=== PATIENT | male | born 1985 | race Caucasian/White ===

== ENCOUNTER 2018-02-28 11:13 | Emergency (ER) | payer SELFPAY ==
--- NOTE | 2018-02-28 13:32 | RAD REPORT ---
EXAM DESCRIPTION: RAD - Foot Right 3 View - 02/28/2018 12:52 pm CLINICAL HISTORY: Pain and swelling without known precipitating event COMPARISON: None. FINDINGS: No fracture, dislocation or periosteal reaction. No air or foreign body in the soft tissues. IMPRESSION: Negative right foot examination.
--- NOTE | 2018-02-28 13:39 | ER ---
Nurse's Notes [facility] Name: Jone Griffin Age: 32 yrs Sex: Male : 1985 Arrival Date: 02/28/2018 Time: 11:15 Bed 13 Private MD: Diagnosis: Pain in right foot Presentation: 02/28 11:26 Presenting complaint: Patient states: My right foot has been swollen for the last 2 la1 days. Transition of care: patient was not received from another setting of care. Onset of symptoms was February 28, 2018. Initial Sepsis Screen: Does the patient meet any 2 criteria? No. Patient's initial sepsis screen is negative. Does the patient have a suspected source of infection? No. Patient's initial sepsis screen is negative. Care prior to arrival: None. 11:26 Method Of Arrival: Ambulatory la1 11:26 Acuity: CHARLENE 3 la1 Historical: - Allergies: 11:26 No Known Allergies; la1 - Home Meds: 11:30 thyroid medication [Active]; Vitamin C Oral [Active]; rb1 - PMHx: 11:30 Hypothyroidism; rb1 - PSHx: 11:30 None; rb1 - Immunization history:: Adult Immunizations up to date. - Social history:: Smoking status: Patient/guardian denies using tobacco. Screenin:30 Abuse screen: Denies threats or abuse. Nutritional screening: No deficits noted. rb1 Tuberculosis screening: No symptoms or risk factors identified. Fall Risk None identified. Assessment: 11:30 General: Appears in no apparent distress. comfortable, Behavior is calm, cooperative. rb1 Pain: Complains of pain in right foot Pain currently is 5 out of 10 on a pain scale. Pain began 2-3 days ago. Aggravated by increased activity. Neuro: Level of Consciousness is awake, alert, obeys commands, Oriented to person, place, time, situation. Cardiovascular: Capillary refill < 3 seconds is brisk in bilateral fingers Pulses are palpable in right dorsalis pedis artery. Respiratory: Airway is patent Respiratory effort is even, unlabored, Respiratory pattern is regular, symmetrical. GI: No signs and/or symptoms were reported involving the gastrointestinal system. : No signs and/or symptoms were reported regarding the genitourinary system. Derm: Skin is pink, warm \T\ dry. Musculoskeletal: Swelling present in right foot. 12:25 Reassessment: Patient appears in no apparent distress at this time. No changes from rb1 previously documented assessment. 13:20 Reassessment: Patient appears in no apparent distress at this time. Patient and/or rb1 family updated on plan of care and expected duration. Pain level reassessed. Patient is alert, oriented x 3, equal unlabored respirations, skin warm/dry/pink. Vital Signs: 11:27 BP 125 / 104; Pulse 76; Resp 19; Temp 98.4(TE); Pulse Ox 100% on R/A; Weight 115.67 kg; la1 Height 6 ft. 0 in. (182.88 cm); 12:25 BP 117 / 75; Pulse 65; Resp 16; Pulse Ox 98% ; rb1 13:20 BP 114 / 73; Pulse 68; Resp 17; Pulse Ox 100% on R/A; rb1 11:27 Body Mass Index 34.58 (115.67 kg, 182.88 cm) la1 ED Course: 11:15 Patient arrived in ED. as 11:27 Triage completed. la1 11:27 Arm band placed on left wrist. la1 11:29 Nataly Arroyo, RN is Primary Nurse. rb1 11:30 Patient has correct armband on for positive identification. Bed in low position. Call rb1 light in reach. Side rails up X 1. Pulse ox on. NIBP on. 11:42 Lian Frye FNP-C is [facility]. kb 11:42 Cedrick Dunn MD is Attending Physician. kb 12:51 X-ray completed. Portable x-ray completed in exam room. Patient tolerated procedure bb2 well. 12:51 Foot Right 3 View XRAY In Process Unspecified. EDMS 13:56 No provider procedures requiring assistance completed. Patient did not have IV access rb1 during this emergency room visit. Administered Medications: No medications were administered Outcome: 13:38 Discharge ordered by . kb 13:56 Patient left the ED. rb1 13:56 Discharged to home ambulatory, with family. rb1 13:56 Condition: stable 13:56 Discharge instructions given to patient, Instructed on discharge instructions, follow up and referral plans. medication usage, Demonstrated understanding of instructions, follow-up care, medications, Prescriptions given X 1. Signatures: Dispatcher [employer] EDAR Lian Frye FNP-C FNP-Aniya Subramanian Lee, RN RN la1 Nataly Arroyo, RN RN rb1 Saima, Mayra miramontes2 Corrections: (The following items were deleted from the chart) 11:50 11:26 PMHx: hyperthyroidism; frank rb1
--- NOTE | 2018-02-28 13:39 | EDPHYS ---
Physician Documentation [facility] Name: Jone Griffin Age: 32 yrs Sex: Male : 1985 Arrival Date: 02/28/2018 Time: 11:15 Bed 13 Private MD: ED Physician Cedrick Dunn HPI: 02/28 12:33 This 32 yrs old Male presents to ER via Ambulatory with complaints of Feet kb Swelling. 12:33 The patient presents with pain, that is acute, swelling, tenderness. The complaints kb affect the right foot. Context: resulted from an unknown cause, Mechanism of Injury: Unknown the patient can fully bear weight, the patient is able to ambulate. Onset: The symptoms/episode began/occurred 2 day(s) ago. Modifying factors: The symptoms are alleviated by nothing, the symptoms are aggravated by nothing. Associated signs and symptoms: Pertinent positives: swelling, Pertinent negatives: calf tenderness, fever, nausea, numbness, rash, tingling, vomiting, warmth, weakness. Severity of symptoms: At their worst the symptoms were mild, moderate, in the emergency department the symptoms are unchanged. The patient has not experienced similar symptoms in the past. The patient has not recently seen a physician. Pt states he started having pain and swelling to right foot 2 days ago. Denies injury or trauma. Historical: - Allergies: 11:26 No Known Allergies; la1 - Home Meds: 11:30 thyroid medication [Active]; Vitamin C Oral [Active]; rb1 - PMHx: 11:30 Hypothyroidism; rb1 - PSHx: 11:30 None; rb1 - Immunization history:: Adult Immunizations up to date. - Social history:: Smoking status: Patient/guardian denies using tobacco. ROS: 12:27 Constitutional: Negative for fever, chills, and weight loss, Cardiovascular: Negative kb for chest pain, palpitations, and edema, Respiratory: Negative for shortness of breath, cough, wheezing, and pleuritic chest pain, Abdomen/GI: Negative for abdominal pain, nausea, vomiting, diarrhea, and constipation, Skin: Negative for injury, rash, and discoloration, Neuro: Negative for headache, weakness, numbness, tingling, and seizure. 12:27 MS/extremity: Positive for pain, swelling, tenderness. Exam: 12:27 Constitutional: This is a well developed, well nourished patient who is awake, alert, kb and in no acute distress. Head/Face: Normocephalic, atraumatic. Chest/axilla: Normal chest wall appearance and motion. Nontender with no deformity. No lesions are appreciated. Cardiovascular: Regular rate and rhythm with a normal S1 and S2. No gallops, murmurs, or rubs. Normal PMI, no JVD. No pulse deficits. Respiratory: Lungs have equal breath sounds bilaterally, clear to auscultation and percussion. No rales, rhonchi or wheezes noted. No increased work of breathing, no retractions or nasal flaring. Abdomen/GI: Soft, non-tender, with normal bowel sounds. No distension or tympany. No guarding or rebound. No evidence of tenderness throughout. Skin: Warm, dry with normal turgor. Normal color with no rashes, no lesions, and no evidence of cellulitis. Neuro: Awake and alert, GCS 15, oriented to person, place, time, and situation. Cranial nerves II-XII grossly intact. Motor strength 5/5 in all extremities. Sensory grossly intact. Cerebellar exam normal. Normal gait. 12:27 Musculoskeletal/extremity: Extremities: grossly normal except: noted in the right foot: pain, swelling, tenderness, ROM: intact in all extremities, Circulation is intact in all extremities. Sensation intact. Weight bearing: able to fully bear weight. Vital Signs: 11:27 BP 125 / 104; Pulse 76; Resp 19; Temp 98.4(TE); Pulse Ox 100% on R/A; Weight 115.67 kg; la1 Height 6 ft. 0 in. (182.88 cm); 12:25 BP 117 / 75; Pulse 65; Resp 16; Pulse Ox 98% ; rb1 13:20 BP 114 / 73; Pulse 68; Resp 17; Pulse Ox 100% on R/A; rb1 11:27 Body Mass Index 34.58 (115.67 kg, 182.88 cm) la1 MDM: 11:42 Patient medically screened. kb 12:27 Data reviewed: vital signs, nurses notes. Data interpreted: Pulse oximetry: on room air kb is 100 %. Interpretation: normal. 13:36 Counseling: I had a detailed discussion with the patient and/or guardian regarding: the kb historical points, exam findings, and any diagnostic results supporting the discharge/admit diagnosis, radiology results, the need for outpatient follow up, a family practitioner, to return to the emergency department if symptoms worsen or persist or if there are any questions or concerns that arise at home. 02/28 12:08 Order name: Foot Right 3 View XRAY; Complete Time: 13:36 kb 02/28 13:38 Order name: Richard Wrap; Complete Time: 13:56 kb Administered Medications: No medications were administered Disposition: 18:52 Co-signature as Attending Physician, Cedrick Dunn MD. Disposition: 02/28/18 13:38 Discharged to Home. Impression: Pain in right foot. - Condition is Stable. - Discharge Instructions: Musculoskeletal Pain. - Prescriptions for Diclofenac Sodium 75 mg Oral Tablet, Delayed Release (E.C.) - take 1 tablet by ORAL route 2 times per day As needed; 30 tablet. - Medication Reconciliation Form, Thank You Letter, Antibiotic Education, Prescription Opioid Use form. - Follow up: Emergency Department; When: As needed; Reason: Worsening of condition. Follow up: Private Physician; When: 2 - 3 days; Reason: Recheck today's complaints, Continuance of care, Re-evaluation by your physician. Signatures: Dispatcher [employer] EDMS Lian Frye, CATHY-C POLISHING MACHINE TENDER-Reyes Hsu RN RN la1 Nataly Arroyo RN RN rb1 Cedrick Dunn MD MD Corrections: (The following items were deleted from the chart) 11:50 11:26 PMHx: hyperthyroidism; la1 rb1 13:56 13:38 02/28/2018 13:38 Discharged to Home. Impression: Pain in right foot. Condition is rb1 Stable. Discharge Instructions: Musculoskeletal Pain. Prescriptions for Diclofenac Sodium 75 mg Oral Tablet, Delayed Release (E.C.) - take 1 tablet by ORAL route 2 times per day As needed; 30 tablet. and Forms are Medication Reconciliation Form, Thank You Letter, Antibiotic Education, Prescription Opioid Use. Follow up: Emergency Department; When: As needed; Reason: Worsening of condition. Follow up: Private Physician; When: 2 - 3 days; Reason: Recheck today's complaints, Continuance of care, Re-evaluation by your physician. kb
== END 2018-02-28 13:56 | disposition home or self-care (01) ==
LOC: ER 11:13
DX: M79.671 Pain in right foot (principal); E03.9 Hypothyroidism, unspecified
CPT/HCPCS: 99283

== ENCOUNTER 2021-06-12 08:35 | Emergency (ER) | payer SELFPAY ==
[2021-06-12 10:04] LABS: Absolute Lymphocytes (CBC) 1.2 K/uL (0.7-4.9); Basophils % 0.3 % (0-1.3); Hematocrit 39.3 % (39.6-49.0); Lymphocytes % 32.5 % (15.3-44.8); MPV 7.9 fL (7.6-11.3); RBC Red Blood Cell Count 4.65 M/uL (4.33-5.43)
[2021-06-12 10:11] LABS: Protime INR 1.28
[2021-06-12] MEDS ORDERED: NA CHLORIDE 0.9% 1,000 ML ONE (10:21)
[2021-06-12 10:30] LABS: ALT/SGPT 31 U/L (12-78); AST/SGOT 26 U/L (15-37); Alkaline Phosphatase 73 U/L (45-117); BUN Blood Urea Nitrogen 14 mg/dL (7-18); Bicarbonate 28 mmol/L (21-32); Bilirubin Direct 0.1 mg/dL (0-0.2); Bilirubin Total 0.3 mg/dL (0.2-1.0); Ferritin 263.5 ng/mL (26-388); Glucose Level 135 mg/dL (74-106); Potassium 3.5 mmol/L (3.5-5.1); Protein, Total 8.1 g/dL (6.4-8.2); Sodium Level 135 mmol/L (136-145); Troponin (Emerg Dept Use Only) < 0.02 ng/mL (0.0-0.045)
--- NOTE | 2021-06-12 10:55 | RAD REPORT ---
EXAM DESCRIPTION: Roberto Single View06/12/2021 10:12 am CLINICAL HISTORY: Shortness of breath COMPARISON: none FINDINGS: Mild bilateral pulmonary opacities. The heart is normal size IMPRESSION: Mild bilateral pulmonary opacities may represent pneumonia
--- NOTE | 2021-06-12 12:43 | EDPHYS ---
Physician Documentation [facility] Name: Jone Griffin Age: 35 yrs Sex: Male : 1985 Arrival Date: 06/12/2021 Time: 08:37 Bed 28 Private MD: FAITH Physician Shahid Elam HPI: 06/12 10:51 This 35 yrs old Male presents to ER via Ambulatory with complaints of jr8 Breathing Difficulty, Cough, bodyaches. 10:51 The patient has shortness of breath at rest. Onset: The symptoms/episode began/occurred jr8 gradually, 3 day(s) ago. Duration: The symptoms are continuous. The patient's shortness of breath is aggravated by coughing, light activity. Associated signs and symptoms: Pertinent positives: Body aches, chills, sweating. Severity of symptoms: At their worst the symptoms were moderate in the emergency department the symptoms are unchanged. The patient has not experienced similar symptoms in the past. The patient has not recently seen a physician. Patient stated that he took a home Covid test which was positive. Is been having shortness of breath with chills and body aches and low-grade fever. Shortness of breath had became worse. Historical: - Allergies: 08:48 No Known Allergies; jl7 - Home Meds: 08:48 THYROID MEDICATION [Active]; HTN medication [Active]; jl7 - PMHx: 08:48 Hypothyroidism; Hypertensive disorder; jl7 - PSHx: 08:48 None; jl7 - Immunization history:: Adult Immunizations not up to date, Client reports having NOT received the Covid vaccine. - Social history:: Smoking status: Patient denies any tobacco usage or history of. - Family history:: not pertinent. ROS: 10:51 Eyes: Negative for injury, pain, redness, and discharge, ENT: Negative for injury, jr8 pain, and discharge, Neck: Negative for injury, pain, and swelling, Cardiovascular: Negative for chest pain, palpitations, and edema, Abdomen/GI: Negative for abdominal pain, nausea, vomiting, diarrhea, and constipation, Back: Negative for injury and pain, MS/Extremity: Negative for injury and deformity, Skin: Negative for injury, rash, and discoloration, Neuro: Negative for headache, weakness, numbness, tingling, and seizure. 10:51 Constitutional: Positive for body aches, chills, fever. 10:51 Respiratory: Positive for cough, shortness of breath. Exam: 10:51 Eyes: Pupils equal round and reactive to light, extra-ocular motions intact. Lids and jr8 lashes normal. Conjunctiva and sclera are non-icteric and not injected. Cornea within normal limits. Periorbital areas with no swelling, redness, or edema. ENT: Nares patent. No nasal discharge, no septal abnormalities noted. Tympanic membranes are normal and external auditory canals are clear. Oropharynx with no redness, swelling, or masses, exudates, or evidence of obstruction, uvula midline. Mucous membranes moist. Neck: Trachea midline, no thyromegaly or masses palpated, and no cervical lymphadenopathy. Supple, full range of motion without nuchal rigidity, or vertebral point tenderness. No Meningismus. Cardiovascular: Tachycardia present with a normal S1 and S2. No gallops, murmurs, or rubs. Normal PMI, no JVD. No pulse deficits. Respiratory: Lungs have equal breath sounds bilaterally, clear to auscultation and percussion. No rales, rhonchi or wheezes noted. Mild tachypnea present without increased work of breathing Abdomen/GI: Soft, non-tender, with normal bowel sounds. No distension or tympany. No guarding or rebound. No evidence of tenderness throughout. Back: No spinal tenderness. No costovertebral tenderness. Full range of motion. MS/ Extremity: Pulses equal, no cyanosis. Neurovascular intact. Full, normal range of motion. Neuro: Awake and alert, GCS 15, oriented to person, place, time, and situation. Cranial nerves II-XII grossly intact. Motor strength 5/5 in all extremities. Sensory grossly intact. 10:51 Skin: Appearance: Color: normal in color, Temperature: warm, Moisture: diaphoretic. Vital Signs: 08:45 BP 99 / 64; Pulse 107; Resp 20; Temp 97.9; Pulse Ox 93% on R/A; Weight 131.54 kg; jl7 Height 6 ft. 0 in. (182.88 cm) (R); 09:41 BP 116 / 69; Pulse 93; Resp 22; Temp 99.8; Pulse Ox 96% on NC; aj2 14:40 BP 134 / 83; Pulse 86; Resp 18; Temp 99.4; Pulse Ox 99% ; aj2 08:45 Body Mass Index 39.33 (131.54 kg, 182.88 cm) jl7 MDM: 08:56 Patient medically screened. [facility] 11:58 Data reviewed: vital signs, nurses notes, lab test result(s), EKG, radiologic studies, jr8 plain films. Data interpreted: Pulse oximetry: on room air is 96 %. Interpretation: normal. Counseling: I had a detailed discussion with the patient and/or guardian regarding: the historical points, exam findings, and any diagnostic results supporting the discharge/admit diagnosis, lab results, radiology results, the need for outpatient follow up, a family practitioner, to return to the emergency department if symptoms worsen or persist or if there are any questions or concerns that arise at home. ED course: Patient's vital signs stable. Oxygen saturation at room air is 96%. No increased work of breathing at this time. Has been well-hydrated. No other emergent concerning findings on labs or imaging. COVID pneumonia present without hypoxia . 06/12 09:08 Order name: BMP [facility] 06/12 09:08 Order name: Blood Culture Adult (2) [facility] 06/12 09:08 Order name: C-Reactive Protein [facility] 06/12 09:08 Order name: CBC with Diff [facility] 06/12 09:08 Order name: D-Dimer [facility] 06/12 09:08 Order name: Ferritin [facility] 06/12 09:08 Order name: LFT's; Complete Time: 10:31 [facility] 06/12 09:08 Order name: Lactate; Complete Time: 10:20 [facility] 06/12 09:08 Order name: PT-INR; Complete Time: 10:20 [facility] 06/12 09:08 Order name: Procalcitonin; Complete Time: 10:55 [facility] 06/12 09:08 Order name: Ptt, Activated; Complete Time: 10:20 [facility] 06/12 09:08 Order name: Troponin (emerg Dept Use Only); Complete Time: 10:31 [facility] 06/12 09:09 Order name: Basic Metabolic Panel; Complete Time: 10:31 [facility] 06/12 09:08 Order name: CXR XRAY; Complete Time: 10:55 [facility] 06/12 09:08 Order name: EKG; Complete Time: 09:09 [facility] 06/12 09:08 Order name: Cardiac monitoring; Complete Time: 11:03 8 06/12 09:08 Order name: Droplet/Contact Precautions; Complete Time: 11:03 8 06/12 09:08 Order name: EKG - Nurse/Tech; Complete Time: 11:03 8 06/12 09:08 Order name: IV Start [facility] 06/12 09:08 Order name: Labs collected and sent; Complete Time: 10:35 [facility] 06/12 09:08 Order name: O2 Per Protocol; Complete Time: 11:03 8 06/12 09:09 Order name: Blood Culture [facility] 06/12 09:09 Order name: C-Reactive Protein; Complete Time: 10:31 [facility] 06/12 09:09 Order name: CBC with Automated Diff; Complete Time: 10:20 [facility] 06/12 09:09 Order name: D-Dimer; Complete Time: 10:20 [facility] 06/12 09:09 Order name: Ferritin; Complete Time: 10:31 [facility] 06/12 12:43 Order name: SARS-COV-2 RT PCR; Complete Time: 12:50 [facility] 06/12 09:08 Order name: O2 Sat Monitoring 8 06/12 09:08 Order name: Urine Dipstick-Ancillary (obtain specimen) jr8 Administered Medications: 11:02 Drug: NS 0.9% 1000 ml Route: IV; Rate: 1000 ml; Site: left antecubital; aj2 Disposition: 06/13 09:18 Co-signature as Attending Physician, Shahid Elam MD I agree with the assessment and barak plan of care. Disposition Summary: 06/12/21 12:43 Discharge Ordered Location: Home jr Problem: new jr8 Symptoms: have improved jr8 Condition: Stable jr8 Diagnosis - SARS-associated coronavirus as the cause of diseases classified elsewhere jr8 - Pneumonia due to SARS-associated coronavirus jr8 Followup: jr8 - With: Private Physician - When: 2 - 3 days - Reason: Recheck today's complaints, Continuance of care, Re-evaluation by your physician Discharge Instructions: - Discharge Summary Sheet jr8 - COVID-19 jr8 - 10 Things You Can Do to Manage Your COVID-19 Symptoms at Home - [id number] Forms: - Medication Reconciliation Form jr8 - Thank You Letter jr8 - Antibiotic Education jr8 - Prescription Opioid Use jr8 Prescriptions: - Prednisone 20 mg Oral Tablet - take 1 tablet by ORAL route once daily for 5 days; 5 tablet; Refills: 0, jr8 Product Selection Permitted - Zithromax Z-Frank 250 mg Oral Tablet - take 1 tablet by ORAL route as directed for 5 days Day 1 - take two (2) tablets jr8 one time. Day 2, 3, 4 , 5 take one (1) tablet once daily.; 6 tablet; Refills: 0, Product Selection Permitted - promethazine 25 mg Oral Tablet - take 1 tablet by ORAL route every 6 hours As needed; 20 tablet; Refills: 0, jr8 Product Selection Permitted Signatures: Dispatcher [employer] EDMS Shahid Elam MD MD cha Roszak, Josh, PA PA jr8 Lester Benito RN RN jl7 Kenji Silva aj2 Corrections: (The following items were deleted from the chart) 06/12 09:39 09:08 Fabiola ordered. jr8 aj2 11:09 09:09 CORONAVIRUS+ ordered. EDMA EDMS
--- NOTE | 2021-06-12 12:43 | ER ---
Nurse's Notes [facility] Name: Jone Griffin Age: 35 yrs Sex: Male : 1985 Arrival Date: 06/12/2021 Time: 08:37 Bed 28 Private MD: Diagnosis: SARS-associated coronavirus as the cause of diseases classified elsewhere;Pneumonia due to SARS-associated coronavirus Presentation: 06/12 08:45 Chief complaint: Patient states: Cough, SOB, body aches since Friday, bought a home jl7 covid test and it was positive on Friday. Coronavirus screen: Vaccine status: Patient reports being unvaccinated. cough unrelated to allergies, difficulty breathing, fatigue, muscle pain, Client presents with at least one sign or symptom that may indicate coronavirus-19. Standard/surgical mask placed on the client. Provider contacted for isolation considerations. Ebola Screen: No symptoms or risks identified at this time. Initial Sepsis Screen: Does the patient meet any 2 criteria? No. Patient's initial sepsis screen is negative. Does the patient have a suspected source of infection? No. Patient's initial sepsis screen is negative. Risk Assessment: Do you want to hurt yourself or someone else? Patient reports no desire to harm self or others. Onset of symptoms was June 09, 2021. 08:45 Method Of Arrival: Ambulatory [facility] 08:45 Acuity: CHARLENE 3 jl7 Triage Assessment: 14:40 General: Appears in no apparent distress. comfortable, well groomed, well developed, aj2 Behavior is calm, cooperative, appropriate for age. Respiratory: Reports shortness of breath cough that is Onset: The symptoms/episode began/occurred gradually, the patient has moderate shortness of breath. Historical: - Allergies: 08:48 No Known Allergies; jl7 - Home Meds: 08:48 THYROID MEDICATION [Active]; HTN medication [Active]; jl7 - PMHx: 08:48 Hypothyroidism; Hypertensive disorder; jl7 - PSHx: 08:48 None; jl7 - Immunization history:: Adult Immunizations not up to date, Client reports having NOT received the Covid vaccine. - Social history:: Smoking status: Patient denies any tobacco usage or history of. - Family history:: not pertinent. Screenin:41 Abuse screen: Denies threats or abuse. Denies injuries from another. Nutritional aj2 screening: No deficits noted. Tuberculosis screening: Never had TB. Fall Risk None identified. Assessment: 09:41 Reassessment: Patient appears in no apparent distress at this time. No changes from aj2 previously documented assessment. Patient and/or family updated on plan of care and expected duration. Pain level reassessed. Pain: Denies pain. Cardiovascular: Rhythm is sinus tachycardia HR 96. Respiratory: Airway is patent. 09:41 Respiratory: Respiratory effort is unlabored. aj2 Vital Signs: 08:45 BP 99 / 64; Pulse 107; Resp 20; Temp 97.9; Pulse Ox 93% on R/A; Weight 131.54 kg; jl7 Height 6 ft. 0 in. (182.88 cm) (R); 09:41 BP 116 / 69; Pulse 93; Resp 22; Temp 99.8; Pulse Ox 96% on NC; aj2 14:40 BP 134 / 83; Pulse 86; Resp 18; Temp 99.4; Pulse Ox 99% ; aj2 08:45 Body Mass Index 39.33 (131.54 kg, 182.88 cm) jl7 Vitals: 09:41 Cardiac Rhythm Assessment Regular. aj2 ED Course: 08:37 Patient arrived in ED. am2 08:48 Triage completed. jl7 08:48 Arm band placed on right wrist. jl7 08:56 Skinny Ram PA is PHCP. jr8 08:56 Shahid Elam MD is Attending Physician. jr8 09:38 Kenji Silva is Primary Nurse. aj2 09:41 No apparent distress. aj2 09:41 Patient has correct armband on for positive identification. Side rails up X 1. aj2 09:41 No provider procedures requiring assistance completed. Unable to obtain IV access and aj2 second blood culture. All other blood orders sent. Yo (provider) aware. 10:12 CXR XRAY In Process Unspecified. EDMS 11:02 BMP Sent. aj2 11:02 Blood Culture Adult (2) Sent. aj2 11:02 C-Reactive Protein Sent. aj2 11:02 CBC with Diff Sent. aj2 11:02 D-Dimer Sent. aj2 11:02 Ferritin Sent. aj2 14:40 EKG completed in triage. Results shown to . aj2 Administered Medications: 11:02 Drug: NS 0.9% 1000 ml Route: IV; Rate: 1000 ml; Site: left antecubital; aj2 Outcome: 12:43 Discharge ordered by MD. pino 15:59 Patient left the ED. iw Signatures: Dispatcher [employer] Shelli Ackerman, RN Skinny Tesfaye PA PA jr8 Lester Benito RN RN jl7 Faith Norwood am2 Kenji Silva aj2
[2021-06-12 16:07] VITALS: TEMP 99.4; O2SAT 99
[2021-06-12 16:19] VITALS: BP 132/68
== END 2021-06-12 15:59 | disposition home or self-care (01) ==
LOC: ER 08:35
DX: U07.1 COVID-19 (principal); J12.82 Pneumonia due to coronavirus disease 2019; I10 Essential (primary) hypertension; E03.9 Hypothyroidism, unspecified
CPT/HCPCS: 36415; 71045; 80048; 80076; 82728; 83605; 84145; 84484; 85025; 85379; 85610; 85730; 86140; 87040; 93005; 99284; J7030; U0003